=== PATIENT | male | born 1995 | race Asian ===

== ENCOUNTER 2017-08-10 10:14 | Emergency (ER) | payer OTHER ==
[~2017-08-10] VITALS: Ht 172.7 cm; Wt 71.3 kg
[2017-08-10 10:28] VITALS: TEMP 36.9; Ht 172.7 cm; Wt 71.3 kg
[2017-08-10] MEDS ORDERED: SODIUM CHLORIDE 0.9% 1000ML 1,000 ML IV STA (10:49)
--- NOTE | 2017-08-10 10:54 | EMERGENCY ROOM VISIT NOTE ---
History Report prepared by Maryibe: Latrice Stout Under the Supervision of: Dr. Biju Crews M.D. First contact with patient: 10:37 Chief Complaint: CHEST PAIN Stated Complaint: CHEST PAIN/SHOULDER&NECK PAIN & NOSE BLEED Nursing Triage Summary: Last Friday CP on the left side, pain with deep inspiration, stretching chest, and when lying down. Denies shortness of breath. Then developed right chest pain hurts in "jolts" and when it comes it radiates into right side of neck and shoulder. Pt also c/o nose bleeds for approximately a month. Pt also verbalizes he was at [employer] yesterday, was up for 37 hours and felt like he was going to pass out so went home. Pt traveled to [place] and [place] Jun 18 for 10 days. Pt went to [facility] for this two days ago, did EKG and DDMR which were both negative. Presents today because pain is not going away and nose bleeding seems worse this weekend. History of Present Illness The patient is a 22 year old male who presents to the Emergency Room with complaints of intermittent chest pain for the past 1 week. He states the pain occasionally radiates into the right side of his neck and his right shoulder. He rates his pain as a 3/10 in severity. Laying down worsens his pain. He denies any shortness of breath or rashes. He went to [facility] recently for his chest pain and produced a negative EKG and D-Dimer. The patient also complains of epistaxis for the past 1 month. He was at [employer] yesterday and was awake for 37 hours and felt like he was going to pass out, so he left. He states he did not actually pass out. He denies any recent fevers, chills, cough or cold symptoms. He states he has no chronic medical problems and only takes Claritin as needed. He denies any recent drug use. The patient notes he did recently travel to [place] in late May. 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 A total of 10 systems reviewed and were otherwise negative. Past Medical & Surgical Medical Problems: (1) Seasonal allergies Social History Smoking Status: Never Smoker Alcohol Use: occasionally Drug Use: none Marital Status: single Housing Status: lives with roommate Occupation Status: [employer] student Current/Historical Medications No Active Prescriptions or Reported Meds Allergies Coded Allergies: No Known Allergies (Unverified , 08/10/17) Physical Exam Vital Signs Date Time Temp Pulse Resp B/P (MAP) Pulse Ox O2 Delivery O2 Flow Rate FiO2 08/10/17 12:08 82 16 138/86 100 08/10/17 10:28 36.9 92 18 135/88 98 Room Air 08/10/17 10:28 97 Room Air Physical Exam GENERAL: Patient is mildly anxious appearing and in minimal distress. HEENT: No acute trauma, normocephalic atraumatic, mucous membranes moist, no nasal congestion, no scleral icterus. NECK: No stridor, no adenopathy, no meningismus, trachea is midline. LUNGS: No dyspnea. Clear to auscultation and equal bilaterally. No wheeze, no rhonchi. HEART: Regular rate and rhythm. No murmurs, rubs, gallops appreciated. ABDOMEN: Soft, nontender, bowel sounds positive, no masses appreciated, no peritonitis. BACK: No midline tenderness, no CVA tenderness EXTREMITIES: Normal motion all extremities, no cyanosis, no edema. NEUROLOGIC: Alert and oriented, no acute motor or sensory deficits, no focal weakness, cranial nerves grossly intact. SKIN: No rash, no jaundice, no diaphoresis. Medical Decision & Procedures ER Provider Diagnostic Interpretation: Radiology results and stated below per my review and radiologist interpretation: CT ANGIOGRAPHY OF THE CHEST, PULMONARY EMBOLUS PROTOCOL CLINICAL HISTORY: Pleuritic chest pain. Recent travel. COMPARISON STUDY: No previous studies for comparison. TECHNIQUE: Following IV administration of 91 mL of Optiray-320, helical axial images of the chest were obtained utilizing the pulmonary embolus protocol. Maximal intensity projections and sagittal and coronal reformats were viewed on an independent 3D workstation. IV contrast was administered without complication. A dose lowering technique was utilized adhering to the principles of ALARA. CT DOSE: 253.55 mGy.cm FINDINGS: No pulmonary emboli are identified. There is no evidence for thoracic aortic dissection. Size of the heart is at the upper limits of normal. There is no pericardial effusion. No enlarged thoracic lymph nodes are present. Central airways are patent. No pneumothorax or pleural effusion is present. There is no consolidation to suggest pneumonia. Bony thorax and upper abdomen are unremarkable. IMPRESSION: 1. No pulmonary emboli identified. 2. No acute intrathoracic findings. Electronically signed by: Guy Watkins M.D. 08/10/2017 11:51 AM Laboratory Results 08/10/17 10:50 Red Blood Count 5.24, Mean Corpuscular Volume 88.5, Mean Corpuscular Hemoglobin 31.3, Mean Corpuscular Hemoglobin Concent 35.3, Mean Platelet Volume 9.8, Neutrophils (%) (Auto) 57.1, Lymphocytes (%) (Auto) 28.1, Monocytes (%) (Auto) 9.7, Eosinophils (%) (Auto) 4.5, Basophils (%) (Auto) 0.4, Neutrophils # (Auto) 4.87, Lymphocytes # (Auto) 2.40, Monocytes # (Auto) 0.83, Eosinophils # (Auto) 0.38, Basophils # (Auto) 0.03 08/10/17 10:50 Test 08/10/17 10:50 08/10/17 10:59 White Blood Count 8.53 K/uL (4.8-10.8) Red Blood Count 5.24 M/uL (4.7-6.1) Hemoglobin 16.4 g/dL (14.0-18.0) Hematocrit 46.4 % (42-52) Mean Corpuscular Volume 88.5 fL (80-100) Mean Corpuscular Hemoglobin 31.3 pg (25-34) Mean Corpuscular Hemoglobin Concent 35.3 g/dl (32-36) Platelet Count 304 K/uL (130-400) Mean Platelet Volume 9.8 fL (7.4-10.4) Neutrophils (%) (Auto) 57.1 % Lymphocytes (%) (Auto) 28.1 % Monocytes (%) (Auto) 9.7 % Eosinophils (%) (Auto) 4.5 % Basophils (%) (Auto) 0.4 % Neutrophils # (Auto) 4.87 K/uL (1.4-6.5) Lymphocytes # (Auto) 2.40 K/uL (1.2-3.4) Monocytes # (Auto) 0.83 K/uL (0.11-0.59) Eosinophils # (Auto) 0.38 K/uL (0-0.5) Basophils # (Auto) 0.03 K/uL (0-0.2) RDW Standard Deviation 40.2 fL (36.4-46.3) RDW Coefficient of Variation 12.6 % (11.5-14.5) Immature Granulocyte % (Auto) 0.2 % Immature Granulocyte # (Auto) 0.02 K/uL (0.00-0.02) Est Creatinine Clear Calc Drug Dose 104.7 ml/min Estimated GFR () 113.6 Estimated GFR (Non- 98.0 BUN/Creatinine Ratio 13.0 (10-20) Calcium Level 9.4 mg/dl (8.5-10.1) Total Creatine Kinase 340 U/L (39-308) Troponin I < 0.015 ng/ml (0-0.045) Bedside Hemoglobin 17.0 g/dl (14.0-18.0) Bedside Hematocrit 50 % (42-52) Bedside Sodium 145 mEq/L (135-144) Bedside Potassium 4.0 mEq/L (3.3-5.0) Bedside Chloride 104 mEq/L (101-112) Bedside Total CO2 32 mEq/l (24-31) Anion Gap 14.0 mmol/L (16-25) Bedside Blood Urea Nitrogen 16 mg/dl (7-18) Bedside Creatinine 1.1 mg/dl (0.6-1.3) Bedside Glucose (other) 82 mg/dl (70-99) Bedside Ionized Calcium (Ford) 1.22 mmol/l (1.12-1.32) Laboratory results as reviewed by me. Medications Administered Medications (Trade) Dose Ordered Sig/Patel Route Start Time Stop Time Status Last Admin Dose Admin Sodium Chloride 1,000 ml @ 999 mls/hr Q1H1M STAT IV 08/10/17 10:49 08/10/17 11:49 DC 08/10/17 10:54 999 MLS/HR ECG Per My Interpretation Indication: chest pain Rate (beats per minute): 78 Rhythm: normal sinus Findings: no acute ischemic change, no ectopy, other (Right axis deviation) ED Course 1039: The patient was evaluated in room C11. A complete history and physical exam was performed. 1049: NSS 1000 ml @ 999 mls/hr IV. 1200: I reevaluated the patient. He is feeling well and resting comfortably. I discussed his results and discharge instructions and he verbalized complete understanding and agreement. Medical Decision Differential: Cardiac Ischemia (STEMI, NSTEMI, Unstable Angina, etc), Aortic Dissection, Arrhythmia, Pulmonary Embolism, Pneumonia, Pneumothorax, MSK, Infectious, Pericarditis/Myocarditis, Esophageal Rupture, Gastrointestinal, amongst other pathologies entertained. 22 yr old male with bilateral chest pain/discomfort over last few weeks gradually worsening. Recent travel and symptoms are pleuritic, thus despite normal Dimer yesterday felt he was no longer considered low risk for PE thus CT PE done. CT negative. EKG normal. Labs normal. Patient looks well. No evidence PE, dissection, asc, infection, pericarditis, nor other acute issue. Likely MSK/costochondritis. Follow up with S. Stable at discharge in no distress. Medication Reconcilliation Current Medication List: was personally reviewed by me Blood Pressure Screening Patient's blood pressure: Normal blood pressure Blood pressure disposition: Did not require urgent referral Impression Primary Impression: Chest wall pain Scribe Attestation The scribe's documentation has been prepared under my direction and personally reviewed by me in its entirety. I confirm that the note above accurately reflects all work, treatment, procedures, and medical decision making performed by me. Departure Information Dispostion Home / Self-Care Prescriptions No Active Prescriptions or Reported Meds Referrals [facility] Patient Instructions ED Chest Pain Costochondritis, My [facility]
[2017-08-10 11:06] LABS: BASO % 0.4 %; BASO ABS # 0.03 K/uL (0-0.2); EOS % 4.5 %; EOS ABS # 0.38 K/uL (0-0.5); HEMATOCRIT 46.4 % (42-52); HEMOGLOBIN 16.4 g/dL (14.0-18.0); IG# 0.02 K/uL (0.00-0.02); LYMPH % 28.1 %; MEAN CELL VOLUME 88.5 fL (80-100); MEAN CORPUSCULAR HEMOGLOBIN 31.3 pg (25-34); MEAN CORPUSCULAR HGB CONC 35.3 g/dl (32-36); MEAN PLATELET VOLUME 9.8 fL (7.4-10.4); MONO % 9.7 %; MONO ABS # 0.83 K/uL (0.11-0.59); NEUT % 57.1 %; NEUT ABS # 4.87 K/uL (1.4-6.5); PLATELET COUNT 304 K/uL (130-400); RED CELL DISTRIBUTION WIDTH CV 12.6 % (11.5-14.5); RED CELL DISTRIBUTION WIDTH SD 40.2 fL (36.4-46.3); WHITE BLOOD COUNT 8.53 K/uL (4.8-10.8)
[2017-08-10 11:10] LABS: ISTAT CREATININE 1.1 mg/dl (0.6-1.3); ISTAT IONIZED CALCIUM 1.22 mmol/l (1.12-1.32)
[2017-08-10] MEDS ORDERED: OPTIRAY 320 IV PRN (11:15)
[2017-08-10 11:17] LABS: BLOOD UREA NITROGEN 14 mg/dl (7-18); CALCIUM 9.4 mg/dl (8.5-10.1); CARBON DIOXIDE 27 mmol/L (21-32); CREATININE 1.07 mg/dl (0.60-1.40); GLUCOSE 80 mg/dl (70-99); POTASSIUM 3.7 mmol/L (3.5-5.1); SODIUM 142 mmol/L (136-145)
--- NOTE | 2017-08-10 11:52 | DIAGNOSTIC IMAGING REPORT ---
CT ANGIOGRAPHY OF THE CHEST, PULMONARY EMBOLUS PROTOCOL CLINICAL HISTORY: Pleuritic chest pain. Recent travel. COMPARISON STUDY: No previous studies for comparison. TECHNIQUE: Following IV administration of 91 mL of Optiray-320, helical axial images of the chest were obtained utilizing the pulmonary embolus protocol. Maximal intensity projections and sagittal and coronal reformats were viewed on an independent 3D workstation. IV contrast was administered without complication. A dose lowering technique was utilized adhering to the principles of ALARA. CT DOSE: 253.55 mGy.cm FINDINGS: No pulmonary emboli are identified. There is no evidence for thoracic aortic dissection. Size of the heart is at the upper limits of normal. There is no pericardial effusion. No enlarged thoracic lymph nodes are present. Central airways are patent. No pneumothorax or pleural effusion is present. There is no consolidation to suggest pneumonia. Bony thorax and upper abdomen are unremarkable. IMPRESSION: 1. No pulmonary emboli identified. 2. No acute intrathoracic findings. Electronically signed by: Guy Watkins M.D. 08/10/2017 11:51 AM Dictated Date/Time: 08/10/2017 11:44 AM
[2017-08-10 12:08] VITALS: BP 138/86; PULSE 82; O2SAT 100
== END 2017-08-10 12:10 | disposition home or self-care (01) ==
LOC: C.EDB 10:18 → C.EDC 12:10
DX: R07.89 Other chest pain (principal); R04.0 Epistaxis; Z91.048 Other nonmedicinal substance allergy status